=== PATIENT | male | born 1960 | race African-American/Black ===

== ENCOUNTER 2016-06-28 16:35 | Inpatient (IN) ==
[2016-06-28] MEDS ORDERED: *HR* LORazepam 2 MG/ML VIAL IVP ONE ×2 (16:37→18:48)
--- NOTE | 2016-06-28 17:09 | Emergency Department Note ---
Disposition Clinical Impression: Hypokalemia, Hypomagnesemia, Hyponatremia Alcohol withdrawal Qualifiers: Complication of substance-induced condition: uncomplicated Qualified Code(s): F10.230 - Alcohol dependence with withdrawal, uncomplicated Disposition: Admitted As Inpatient Condition: Good [facility]Primary Care Provider[facility] - Forms: ED Satisfaction Letter Recheck wound or abnormal lab - General Chief Complaint: ED Recheck/Abnormal Lab/Rx Stated Complaint: low potassium and sodium Time Seen by Provider: 06/28/16 16:35 Source: patient, EMS Mode of arrival: EMS Limitations: no limitations Nursing Notes Reviewed: Yes Vital Signs Reviewed: Yes - History of Present Illness HPI Narrative: 55-year-old male history of chronic alcohol abuse who presents to the ER with a chief complaint of abnormal labs. The patient arrives via EMS from the [facility]. Patient went there today to present for detoxification. Patient had labs drawn at that time which showed hypokalemia with a potassium of 1.8. Patient was transported here for evaluation. Patient does report that he did have some vomiting over the last few days. Patient denies a history of DTs. He reports that he has had seizures secondary to his sodium. He denies a history of seizure disorder. Patient brought here for evaluation. Ports that his last drink was yesterday evening. Reports that he usually drinks 4-6 beers a day. No other complaints. Pt Subjective Complaint: abnormal lab(s) Symptoms Since Prior Visit: no new symptoms Associated symptoms: none - Related Data Home Medications Medication Instructions Recorded Confirmed Buspirone HCl [Buspar] 10 mg PO TIDWM 06/28/16 06/28/16 Cholecalciferol (D-3) [Vitamin D] 2,000 unit PO DAILY 06/28/16 06/28/16 Folic Acid 1 mg PO DAILY 06/28/16 06/28/16 HydrOXYzine Pamoate [Vistaril] 50 mg PO TID 06/28/16 06/28/16 Lactose-Reduced Food [Ensure 237 ml PO BID 06/28/16 06/28/16 Liquid] Mag Hydrox/Al Hydrox/Simeth 30 ml PO Q6H PRN 06/28/16 06/28/16 [Antacid Suspension] Nicotine Patch [Nicoderm] 14 mg TD DAILY 06/28/16 06/28/16 Omeprazole [PriLOSEC] 20 mg PO BIDAC 06/28/16 06/28/16 Pantoprazole Sodium [Protonix] 40 mg PO DAILY 06/28/16 06/28/16 Potassium Chloride Elixir 20 meq PO BID 06/28/16 06/28/16 [Potassium Chloride] Prazosin [Minipress] 3 mg PO HS 06/28/16 06/28/16 Sildenafil Citrate [Viagra] 100 mg PO AD PRN 06/28/16 06/28/16 Thiamine (B-1) [Vitamin B-1] 100 mg PO DAILY 06/28/16 06/28/16 Trazodone HCl 150 mg PO HS 06/28/16 06/28/16 Triamterene/HCTZ 37.5/25mg 1 each PO DAILY 06/28/16 06/28/16 [Dyazide] Allergies Allergy/AdvReac Type Severity Reaction Status Date / Time No Known Allergies Allergy Verified 06/28/16 16:53 All systems ED: reviewed and negative except as stated. Constitutional: Denies: fever Cardiovascular: Denies: chest pain, palpitations Respiratory: Denies: cough, dyspnea Gastrointestinal: Reports: vomiting. Denies: abdominal pain, nausea, diarrhea Past Medical History - Past Medical History Attestation: Yes The following information was validated with the patient. Source: patient Medical history: Reports: seizures, other Surgical history: Reports: non-contributory Psychiatric history: Reports: anxiety, PTSD - Social History Smoking Status: Never smoker Smokeless Tobacco Status: Yes Alcohol use: Reports: heavy Drug use: Reports: marijuana Physical Exam - General Limitations: no limitations General appearance: alert, anxious - Head Head exam: atraumatic, normocephalic, normal inspection - Eye Eye exam: Present: normal appearance, EOMI - ENT ENT exam: normal exam - Neck Neck exam: Present: normal inspection - Chest Chest inspection: Present: normal inspection, symmetric chest wall rise - Respiratory Respiratory exam: Present: normal lung sounds bilaterally - Cardiovascular Cardiovascular exam: Present: regular rate, normal rhythm, normal heart sounds - Abdominal Exam Abdominal exam: Present: soft, Non-Tender. Absent: tenderness - Extremities Exam Extremities exam: Present: normal inspection, full ROM - Expanded Upper Extremity Exam Shoulder exam: Present: normal inspection, full ROM Arm exam: Present: normal inspection, full ROM Elbow exam: Present: normal inspection, full ROM Forearm/Wrist exam: Present: normal inspection, full ROM Hand exam: Present: normal inspection, full ROM - Expanded Lower Extremity Exam Hip/Pelvis exam: Present: normal inspection, full ROM Upper leg exam: Present: normal inspection, full ROM Knee exam: Present: normal inspection, full ROM Lower leg exam: Present: normal inspection, full ROM Ankle exam: Present: normal inspection, full ROM Foot/toe exam: Present: normal inspection, full ROM - Neurological Exam Neurological exam: Present: alert, oriented X3, CN II-XII intact. Absent: motor sensory deficit - Psychiatric Psychiatric exam: Present: normal affect, normal mood - Skin Skin exam: Present: warm, dry, intact, normal color Course Course Narrative: Patient seen and examined. Vital signs reviewed. He does appear anxious here. We will give him a dose of IV Ativan. We will recheck labs, EKG. Disposition pending. Vital Signs Temperature 98.9 F 06/28/16 16:37 Pulse Rate 90 06/28/16 16:37 Respiratory Rate 18 06/28/16 16:37 Blood Pressure 121/76 06/28/16 16:37 O2 Sat by Pulse Oximetry 100 06/28/16 16:37 Temperature 98.9 F 06/28/16 16:37 Pulse Rate 93 06/28/16 18:33 Respiratory Rate 18 06/28/16 18:33 Blood Pressure 118/88 06/28/16 18:33 O2 Sat by Pulse Oximetry 96 06/28/16 18:33 Oxygen Delivery Oxygen Delivery Room Air Recheck wound or abnormal lab - MDM Narrative Medical decision making narrative: 55-year-old male presents to the ER due to abnormal labs. History of alcohol abuse and went today for detox. He was found to be hypokalemic here at 2.0. He is also hypomagnesemic at 1.3. He is hyponatremic at 1:15. He reports a history of seizure in the past due to his sodium. Patient was given Ativan here for his tremor. We started him on normal saline maintenance fluids, potassium rider and oral potassium as well as IV magnesium. Patient admitted to the hospitalist service. - Lab Data Lab results reviewed: Yes I reviewed the patient's lab results. Result diagrams: 06/28/16 17:23 06/28/16 17:23 Lab Results 03/27/17 03/27/17 03/27/17 Range/Units 16:59 16:59 17:23 WBC 5.1 (4.3-11.1) K/mcL RBC 4.40 (4.19-5.50) M/mcL Hgb 9.9 L (12.9-16.9) g/dL Hct 29.1 L (37.5-50.1) % MCV 66.1 L (83.0-100.0) fL MCH 22.5 L (28.0-33.3) pg MCHC 34.0 (31.6-35.5) g/dL RDW 16.4 H (11.5-14.5) % Plt Count 254 (140-400) K/mcL MPV 8.8 L (9.4-12.4) fL Immature Gran % 0.6 (0-4) % Seg Neutrophils % 79.9 % Lymphocytes % 4.7 % Monocytes % 14.6 % Eosinophils % 0.0 % Basophils % 0.2 % Neutrophils # 4.1 (1.6-8.9) K/mcL Lymphocytes # 0.2 L (0.6-4.6) K/mcL Monocytes # 0.7 (0.0-1.3) K/mcL Eosinophils # 0.0 (0.0-0.6) K/mcL Basophils # 0.0 (0.0-0.2) K/mcL Platelet Estimate Normal (Normal) Hypochromasia Present A (Not Present) Anisocytosis 1+ A (Not Present) Microcytosis Present A (Not Present) Sodium (136-145) mEq/L Potassium (3.5-4.5) mEq/L Chloride (98-109) mEq/L Carbon Dioxide (19-29) mEq/L BUN (8-26) mg/dL Creatinine (0.72-1.25) mg/dL Est GFR ( Amer) (> 60) Est GFR (Non-Af Amer) (> 60) BUN/Creatinine Ratio (6-26) Glucose (70-99) mg/dL Calculated Osmolality (280-300) Calcium (8.6-10.8) mg/dL Magnesium (1.6-2.6) mg/dL Lipase (8-78) Units/L Urine Color Yellow (Yellow) Urine Clarity Clear (Clear) Urine pH 8.0 (5.0-8.0) pH Units Ur Specific Bowlus 1.006 L (1.010-1.025) Urine Protein Negative (Neg-Trace) mg/dL Urine Glucose (UA) Normal (Normal) mg/dL Urine Ketones Negative (Negative) mg/dL Urine Blood Negative (Negative) Urine Nitrite Negative (Negative) Urine Bilirubin Negative (Negative) Urine Urobilinogen Normal (Normal) mg/dL Ur Leukocyte Esterase Negative (Negative) Ur Culture Indicated? NO (NO) Urine Opiates Screen Negative (Nhpdcx=340) ng/mL Ur Barbiturates Screen Negative (Vlhvvi=998) ng/mL Ur Phencyclidine Scrn Negative (Cutoff=25) ng/mL Ur Amphetamines Screen Negative (Ooucoe=2807) ng/mL U Benzodiazepines Scrn Negative (Iovvlh=638) ng/mL Urine Cocaine Screen Negative (Cutoff= 300) ng/mL U Marijuana (THC) Screen Positive H (Cutoff = 50) ng/mL Ethyl Alcohol (0-10) mg/dL 06/28/16 06/28/16 Range/Units 17:23 17:23 WBC (4.3-11.1) K/mcL RBC (4.19-5.50) M/mcL Hgb (12.9-16.9) g/dL Hct (37.5-50.1) % MCV (83.0-100.0) fL MCH (28.0-33.3) pg MCHC (31.6-35.5) g/dL RDW (11.5-14.5) % Plt Count (140-400) K/mcL MPV (9.4-12.4) fL Immature Gran % (0-4) % Seg Neutrophils % % Lymphocytes % % Monocytes % % Eosinophils % % Basophils % % Neutrophils # (1.6-8.9) K/mcL Lymphocytes # (0.6-4.6) K/mcL Monocytes # (0.0-1.3) K/mcL Eosinophils # (0.0-0.6) K/mcL Basophils # (0.0-0.2) K/mcL Platelet Estimate (Normal) Hypochromasia (Not Present) Anisocytosis (Not Present) Microcytosis (Not Present) Sodium 115 L* (136-145) mEq/L Potassium 2.0 L* (3.5-4.5) mEq/L Chloride 66 L (98-109) mEq/L Carbon Dioxide 37 H (19-29) mEq/L BUN 5 L (8-26) mg/dL Creatinine 0.78 (0.72-1.25) mg/dL Est GFR ( Amer) > 60 (> 60) Est GFR (Non-Af Amer) > 60 (> 60) BUN/Creatinine Ratio 6 (6-26) Glucose 104 H (70-99) mg/dL Calculated Osmolality 238 L (280-300) Calcium 8.4 L (8.6-10.8) mg/dL Magnesium 1.3 L (1.6-2.6) mg/dL Lipase 13 (8-78) Units/L Urine Color (Yellow) Urine Clarity (Clear) Urine pH (5.0-8.0) pH Units Ur Specific Bowlus (1.010-1.025) Urine Protein (Neg-Trace) mg/dL Urine Glucose (UA) (Normal) mg/dL Urine Ketones (Negative) mg/dL Urine Blood (Negative) Urine Nitrite (Negative) Urine Bilirubin (Negative) Urine Urobilinogen (Normal) mg/dL Ur Leukocyte Esterase (Negative) Ur Culture Indicated? (NO) Urine Opiates Screen (Ljckzr=613) ng/mL Ur Barbiturates Screen (Pbkmvw=761) ng/mL Ur Phencyclidine Scrn (Cutoff=25) ng/mL Ur Amphetamines Screen (Gbfqxg=7132) ng/mL U Benzodiazepines Scrn (Okpzfc=100) ng/mL Urine Cocaine Screen (Cutoff= 300) ng/mL U Marijuana (THC) Screen (Cutoff = 50) ng/mL Ethyl Alcohol < 10 (0-10) mg/dL - EKG Data EKG attestation: Yes I reviewed and interpreted this EKG. EKG results narrative: EKG demonstrates normal sinus rhythm with a rate of 87 bpm. EKG is degraded by moderate motion artifact. SD interval 166 QRS duration 89 and QTC 303. No gross ST elevations or depressions. Repeat EKG demonstrates normal sinus rhythm with rate of 95 bpm. Normal axis. SD interval 151 QRS duration 91 QTc 438 T wave flattening in the inferior and lateral leads. No ST elevations or depressions. Critical Care Time Critical Care Time: Yes Total Critical Care Time: 35 Attestation: Critical care time 35 minutes managing patient's severe electrolyte abnormalities and alcohol withdrawal. Parul - Parul Situation: Demographics, MOA Background: Presenting Complaint, Relevant PMH, Meds, & Allergies Assessment: Vital Signs, Course and respsone to treatment, Exam Concerns, Patient/Family Expectation, Pertinant Lab Results, Outstanding Labs Recommendation: Barrier(s) to disposition, Recommendation based on pending studies, treatments, or consults SArron Report Given to: Lucia Teran Repor Time: 18:50 Attestation Statement - Attestation Attestation: Patient was seen with resident physician. I reviewed the history, physical, assessment and plan, and agree with the findings. I also personally evaluated this patient and had [id number] time with this patient. 55-year-old male presents to the emergency Department as a transfer from the [facility] with a chief complaint of alcohol withdrawal, as well as hyponatremia and hypokalemia. Patient has history of same. He has never had seizures from alcohol withdrawal and he has not had it this time. He does have tremors. He says that his sodium and potassium dropped with some frequency. Supposedly his potassium was 1.8. He was treated with some potassium prior to arrival he does have a port for this. On exam patient is a little bit tremulous but answers all questions appropriately. Neurologically patient is intact. ENT is normal. Heart and lungs are normal. Abdomen is soft and nontender. Extremities unremarkable. We will check lab tests to see the effectiveness of the previous treatments. EKG initially is a poor study will need to be repeated once his Ativan is not laced. Will start additional potassium treatments and have patient admitted to the hospital for further evaluation and treatment. I agree with the resident physician assessment and plan.
[2016-06-28 17:11] LABS: Bilirubin,Urine Negative (Negative); Blood,Urine Negative (Negative); Clarity,Urine Clear (Clear); Color,Urine Yellow (Yellow); Glucose,Urine (UA) Normal (Normal); Ketones,Urine Negative (Negative); Leukocyte Esterase,Urine Negative (Negative); Nitrite,Urine Negative (Negative); Protein,Urine Negative (Neg-Trace); Specific Gravity,Urine 1.006 (1.010-1.025); Urobilinogen,Urine Normal (Normal)
[2016-06-28 17:19] LABS: Amphetamine Screen,Urine Negative ng/mL (Cutoff=1000); Barbiturate Screen,Urine Negative ng/mL (Cutoff=200); Benzodiazepines Screen,Urine Negative ng/mL (Cutoff=200); Cannabinoid Screen,Urine Positive ng/mL (Cutoff = 50); Cocaine Screen,Urine Negative ng/mL (Cutoff= 300); Opiate Screen,Urine Negative ng/mL (Cutoff=300); Phencyclidine Screen,Urine Negative ng/mL (Cutoff=25)
[2016-06-28 17:36] LABS: Basophils % 0.2 %; Hematocrit 29.1 % (37.5-50.1); Hemoglobin 9.9 g/dL (12.9-16.9); Immature Granulocytes % 0.6 % (0-4); Lymphocytes # 0.2 K/mcL (0.6-4.6); Lymphocytes % 4.7 %; Mean Corpuscular Hemoglobin 22.5 pg (28.0-33.3); Mean Corpuscular Volume 66.1 fL (83.0-100.0); Mean Platelet Volume 8.8 fL (9.4-12.4); Monocytes % 14.6 %; Neutrophils # 4.1 K/mcL (1.6-8.9); Platelet Count 254 K/mcL (140-400); Red Cell Distribution Width 16.4 % (11.5-14.5); Segmented Neutrophils % 79.9 %
[2016-06-28 17:40] LABS: Monocytes # 0.7 K/mcL (0.0-1.3)
[2016-06-28 17:44] LABS: BUN/Creatinine Ratio 6 (6-26); Calcium 8.4 mg/dL (8.6-10.8); Carbon Dioxide 37 mEq/L (19-29); Chloride 66 mEq/L (98-109); Glucose 104 mg/dL (70-99); Lipase 13 Units/L (8-78); Osmolality,Calculated 238 (280-300); eGFR For African Americans > 60 (> 60); eGFR For Non-African Americans > 60 (> 60)
[2016-06-28 17:48] LABS: Blood Urea Nitrogen 5 mg/dL (8-26); Ethanol < 10 mg/dL (0-10)
[2016-06-28 17:50] LABS: Sodium 115 mEq/L (136-145)
[2016-06-28] MEDS ORDERED: Magnesium Sulfate 2 GM in D5% in Water 100 ML IVPB ONE (17:59)
[2016-06-28] MEDS ORDERED: 0.9 % Sodium Chloride 1,000 ML IVC SCH (18:00)
[2016-06-28 18:08] LABS: Anisocytosis 1+ (Not Present); Hypochromasia Present (Not Present); Microcytosis Present (Not Present); Platelet Estimate Normal (Normal)
[2016-06-28 21:41] LABS: BUN/Creatinine Ratio 6 (6-26); Calcium 8.6 mg/dL (8.6-10.8); Carbon Dioxide 36 mEq/L (19-29); Chloride 70 mEq/L (98-109); Glucose 107 mg/dL (70-99); Osmolality,Calculated 246 (280-300); eGFR For African Americans > 60 (> 60); eGFR For Non-African Americans > 60 (> 60)
[2016-06-28 21:45] LABS: Blood Urea Nitrogen 5 mg/dL (8-26)
[2016-06-28 21:49] LABS: Potassium 2.1 mEq/L (3.5-4.5); Sodium 119 mEq/L (136-145)
--- NOTE | 2016-06-29 00:09 | Internal Med History&Physical ---
Date of Encounter: 06/29/16 Time of Encounter: 00:06 Assessment and Plan (1) Hypokalemia Current visit: Yes Status: Acute Severe hypokalemia associated with hypomagnesemia. Magnesium was supplemented and is currently within normal limits. We will continue monitoring potassium and supplementing potassium accordingly. Telemetry monitoring. The patient is at high risk of developing arrhythmias due to severe electrolyte imbalances. (2) Hypomagnesemia Current visit: Yes Status: Acute Continue monitoring closely. (3) Hyponatremia Current visit: Yes Status: Acute Hyponatremia likely chronic in the setting of a patient with chronic alcohol abuse and the report of suzy. We will continue monitoring electrolytes closely. We will avoid a rapid correction of sodium levels. We will consult nephrology for assistance. (4) Alcohol dependence Current visit: Yes Status: Acute custodial services manager eval. DT prophylaxis. Qualifiers: Substance use status: unspecified alcohol-induced disorder Qualified Code(s ): F10.29 - Alcohol dependence with unspecified alcohol-induced disorder Internal Medicine - H&P: HPI Chief complaint: abnormal labs Admitted From: Emergency Dept Plans for Post Hospital Care: Home History of present illness: Mr. Abreu is a 55 year old male with history of chronic alcohol abuse who presents to the ER with a chief complaint of abnormal labs. The patient arrives via EMS from the [facility]. Patient went there today to be admitted for detoxification. Patient had labs drawn at that time which showed hypokalemia with a potassium of 1.8. Patient was transported here for evaluation. Patient does report that he did have some vomiting over the last few days. According to ED report, his last drink was yesterday evening. Reports that he usually drinks 4-6 beers a day. No other complaints. Inhalation in the ED revealed a sodium of 116, which later increased to 119 57. His profession Admission Was 2.0, Rechecked at 2.1. Magnesium Was 1.3, Later at 2.0. Patient was otherwise asymptomatic when I saw him, he denied chest pain , shortness of breath, chills, cough. He was admitted for further management and workup Past Med Surg Social Fam HX - Past Medical History Medical history: seizures, other Psychiatric history: anxiety, PTSD - Past Surgical History Surgical History: non-contributory - Social History Smoking Status: Never smoker Smokeless Tobacco Status: Yes Alcohol use: heavy Drug use: marijuana Internal Medicine - H&P: Meds Buspirone HCl [Buspar] 10 mg PO TIDWM 06/28/16 [History] Cholecalciferol (D-3) [Vitamin D] 2,000 unit PO DAILY 06/28/16 [History] Folic Acid 1 mg PO DAILY 06/28/16 [History] HydrOXYzine Pamoate [Vistaril] 50 mg PO TID 06/28/16 [History] Lactose-Reduced Food [Ensure Liquid] 237 ml PO BID 06/28/16 [History] Mag Hydrox/Al Hydrox/Simeth [Antacid Suspension] 30 ml PO Q6H PRN 06/28/16 [ History] Nicotine Patch [Nicoderm] 14 mg TD DAILY 06/28/16 [History] Omeprazole [PriLOSEC] 20 mg PO BIDAC 06/28/16 [History] Pantoprazole Sodium [Protonix] 40 mg PO DAILY 06/28/16 [History] Potassium Chloride Elixir [Potassium Chloride] 20 meq PO BID 06/28/16 [History] Prazosin [Minipress] 3 mg PO HS 06/28/16 [History] Sildenafil Citrate [Viagra] 100 mg PO AD PRN 06/28/16 [History] Thiamine (B-1) [Vitamin B-1] 100 mg PO DAILY 06/28/16 [History] Trazodone HCl 150 mg PO HS 06/28/16 [History] Triamterene/HCTZ 37.5/25mg [Dyazide] 1 each PO DAILY 06/28/16 [History] Allergies No Known Allergies Allergy (Verified 06/28/16 16:53) All Systems PM: A 10-system review of systems was performed and is negative for pertinent findings except as documented above in the HPI. - Constitutional Constitutional: as per HPI, no chills, no fever(s), no night sweats - EENT Eyes: as per HPI, no change in vision, no discharge, no pain, no photophobia Ears: as per HPI, no ear discharge, no ear pain, no tinnitus Nose, mouth and throat: as per HPI, no dysphagia, no nasal discharge, no neck pain, no sore throat - Breasts Breasts: as per HPI - Cardiovascular Cardiovascular ROS IM: as per HPI, no chest pain, no diaphoresis, no dyspnea, no lightheadedness, no palpitations, no syncope - Respiratory Respiratory: as per HPI, no cough, no dyspnea, no wheezing, no excessive phlegm production - Gastrointestinal Gastrointestinal: as per HPI, no abdominal pain, no diarrhea, no hematemesis, no hematochezia, no melena, no nausea, no vomiting - Genitourinary Genitourinary ROS male: as per HPI - Musculoskeletal Musculoskeletal ROS IM: as per HPI, no numbness, no tingling - Integumentary Integumentary IM: as per HPI, no rash, no unusual bruising - Neurological Neurological ROS: as per HPI, no confusion, no convulsions, no focal weakness, no numbness, no tingling, no tremor(s) - Psychiatric Psychiatric: as per HPI - Endocrine Endocrine IM: as per HPI - Hematologic/Lymphatic Hematologic/Lymphatic: as per HPI, no easy bruising - Allergic/Immunologic Allergic/Immunologic: as per HPI - Constitutional Vitals: Temp Pulse Resp BP Pulse Ox 98.9 F 82 14 91/69 96 06/28/16 16:37 06/28/16 20:27 06/28/16 21:20 06/28/16 21:20 06/28/16 20:27 General appearance: Present: cooperative, A&O X 3, no acute distress Exam: disheveled, multiple tattoos - Head Head exam: Present: atraumatic, normocephalic - Eye Eye exam: Present: PERRL, conjuntiva pink, sclera anicteric Pupils: Present: PERRL - Neck Neck exam general surgery: Present: supple, trachea midline. Absent: lymphadenopathy - Respiratory Respiratory exam: Present: CTAB. Absent: accessory muscle use, rales, rhonchi, wheezes - Cardiovascular Cardiovascular exam: Present: RRR, +S1, +S2. Absent: diastolic murmur, gallop, rubs, systolic murmur - GI/Abdominal GI/Abdominal exam: Present: normal bowel sounds, soft, no peritoneal signs. Absent: distended, tenderness - Extremities Exam Extremities exam: Present: warm, radial pulses palpable and symetrical. Absent : calf tenderness, cyanotic, pedal edema - Neurological Exam Neurological exam: Present: CN II-XII intact, oriented X3, no focal deficits. Absent: pronater drift, facial droop, speech deficit - Skin Skin exam: Present: dry, intact Internal Med - H&P Results - Labs CBC & Chem 7: 06/28/16 17:23 06/28/16 21:10 Labs: BMP 06/28/16 21:10 Sodium 119 L* Potassium 2.1 L* Chloride 70 L Carbon Dioxide 36 H BUN 5 L Creatinine 0.80 Glucose 107 H Calcium 8.6
[2016-06-29] MEDS ORDERED: Naloxone 0.4 MG/ML INJ IVP PRN (00:22)
[2016-06-29] MEDS ORDERED: Acetaminophen 325 MG TABLET PO PRN (00:22)
[2016-06-29] MEDS ORDERED: *HR* LORazepam 2 MG/ML VIAL IVP PRN ×2 (00:24)
[2016-06-29] MEDS: Magnesium Oxide 400 MG TABLET PO SCH ×3 (00:58→19:36)
[2016-06-29] MEDS: Ondansetron 4 MG/2 ML VIAL IVP PRN ×3 (00:58→19:38)
[2016-06-29 04:44] LABS: Basophils % 0.2 %; Eosinophils % 0.2 %; Hematocrit 30.4 % (37.5-50.1); Immature Granulocytes % 0.2 % (0-4); Lymphocytes # 0.4 K/mcL (0.6-4.6); Lymphocytes % 8.7 %; Mean Corpuscular HGB Conc 32.9 g/dL (31.6-35.5); Mean Corpuscular Hemoglobin 22.5 pg (28.0-33.3); Mean Corpuscular Volume 68.3 fL (83.0-100.0); Mean Platelet Volume 9.4 fL (9.4-12.4); Monocytes # 0.5 K/mcL (0.0-1.3); Monocytes % 12.8 %; Neutrophils # 3.3 K/mcL (1.6-8.9); Platelet Count 279 K/mcL (140-400); Red Blood Count 4.45 M/mcL (4.19-5.50); Red Cell Distribution Width 16.9 % (11.5-14.5); Segmented Neutrophils % 77.9 %
[2016-06-29 04:49] LABS: INR 1.2; Prothrombin Time 12.6 Seconds (9.4-12.1)
[2016-06-29 04:59] LABS: Alanine Aminotransferase 13 Units/L (0-55); Albumin 2.9 g/dL (3.5-5.0); Albumin/Globulin Ratio 0.9 (1.1-2.2); Alkaline Phosphatase 72 Units/L (38-126); Aspartate Amino Transferase 26 Units/L (5-34); BUN/Creatinine Ratio 7 (6-26); Bilirubin,Total 0.4 mg/dL (0.2-1.2); Calcium 8.4 mg/dL (8.6-10.8); Carbon Dioxide 38 mEq/L (19-29); Chloride 77 mEq/L (98-109); Globulin 3.3 g/dL (2.4-3.5); Glucose 89 mg/dL (70-99); Osmolality,Calculated 255 (280-300); Potassium 2.7 mEq/L (3.5-4.5); Sodium 124 mEq/L (136-145); Total Protein 6.2 g/dL (6.0-8.3); eGFR For African Americans > 60 (> 60); eGFR For Non-African Americans > 60 (> 60)
[2016-06-29 05:09] LABS: Blood Urea Nitrogen 5 mg/dL (8-26)
[2016-06-29 05:16] LABS: Anisocytosis 1+ (Not Present); Hypochromasia Present (Not Present); Platelet Estimate Normal (Normal); Reactive Lymphocytes Present (Not Present)
[2016-06-29] MEDS: *HR* Heparin 5,000 UNIT/ML VIAL SQ SCH ×2 (06:19→17:53)
[2016-06-29] MEDS: Vitamin B Complex/Vit C/Vit E 1 EACH TABLET PO SCH (07:48)
[2016-06-29] MEDS: Thiamine (B-1) 100 MG TABLET PO SCH (07:48)
[2016-06-29] MEDS: Folic Acid 1 MG TABLET PO SCH (07:48)
[2016-06-29] MEDS: Nicotine 21 MG PATCH.TD24 TD SCH (11:13)
[2016-06-29] MEDS ORDERED: Potassium Chloride Elixir 20 MEQ/15 ML UDC PO ONE ×2 (11:49→23:13)
[2016-06-29] MEDS: *HR* LORazepam 2 MG/ML VIAL IVP PRN ×2 (14:30→19:56)
--- NOTE | 2016-06-29 16:26 | Event Note ---
Date of Encounter: 06/29/16 Time of Encounter: 16:26 Patient admitted last night with abnormal electrolytes. He ahs hx of alcohol use admitted with hypokalemia, hyponatremia and hypomagnesemia. On replacement protocl. Repeat levels. Gives hx of chronic electrolyte abnormalities. Nephrology following. Will send labs to calculate TTKG. Could be component of Renal tubular acidosis. Will get aldosterone levls. Nephrology consulted.
--- NOTE | 2016-06-29 19:27 | Nephrology Consult Note ---
Date of Encounter: 06/29/16 Time of Encounter: 11:00 Assessment and Plan (1) Hyponatremia Current Visit: Yes Status: Chronic Longstanding chronic hyponatremia likely due to beer potomania aggravated by volume depletion from nausea and vomiting leading to acute hyponatremia Agrre with initial IVF for volume resuscitation with NS now discontinued as sodium improved to 124 Continue serial sodium checks Can resume salt tabs at 1g bid tomorrow Liberalize sodium in diet as well Await urine and serum osmolality still pending Will check urine sodium as well Will check uric acid and thyroid function as well as cortisol levels for hyponatremia workup (2) Hypokalemia Current Visit: Yes Status: Acute Hypokalemia likely due to vomiting in addition to longstanding poor po intake Agree with potassium supplements already done after magnesium repletion Might need another additional 100-120meq supplements tomorrow to reach normal limits (3) Alcohol dependence Current Visit: Yes Status: Chronic Agree with thiamine and folate as well as MVI supplements Agree with high protein shakes Qualifiers: Substance use status: unspecified alcohol-induced disorder Qualified Code(s ): F10.29 - Alcohol dependence with unspecified alcohol-induced disorder (4) Hypomagnesemia Current Visit: Yes Status: Resolved Repleted, continue mgoxide at current dose History of Present Illness - Reason for Consult Consult date: 06/29/16 hyponatremia, hypokalemia Requesting physician: Ran Bonds - History of Present Illness 55 y o male with PMH of EtOH abuse admitted after being sent from the [place] with abnormal labs with sodium of 115, potassium of 2.0, hypomagnesemia and also hypophosphatemia. Renal consulted to help with management of electrolyte abnormalities. Patient reports senior care history of hyponatremia for which he takes salt tabs bid. He also reports longstanding history of EtOH abuse drinking approx. 6(24oz) beer daily in the past 2 weeks. He also reports overall poor po intake and also takes multivitamin along with magenesium and [facility] He reports recent nausea and vomiting in the last few days but no diarrhea. He denies any diuretic use. Past Med Surg Social Fam HX - Past Medical History Medical history: seizures, other Psychiatric history: anxiety, PTSD - Past Surgical History Surgical History: non-contributory - Social History Smoking Status: Never smoker Smokeless Tobacco Status: Yes Alcohol use: heavy Drug use: marijuana Medications and Allergies Buspirone HCl [Buspar] 10 mg PO TIDWM 06/28/16 [History] Cholecalciferol (D-3) [Vitamin D] 2,000 unit PO DAILY 06/28/16 [History] Folic Acid 1 mg PO DAILY 06/28/16 [History] HydrOXYzine Pamoate [Vistaril] 50 mg PO TID 06/28/16 [History] Lactose-Reduced Food [Ensure Liquid] 237 ml PO BID 06/28/16 [History] Mag Hydrox/Al Hydrox/Simeth [Antacid Suspension] 30 ml PO Q6H PRN 06/28/16 [ History] Nicotine Patch [Nicoderm] 14 mg TD DAILY 06/28/16 [History] Omeprazole [PriLOSEC] 20 mg PO BIDAC 06/28/16 [History] Pantoprazole Sodium [Protonix] 40 mg PO DAILY 06/28/16 [History] Potassium Chloride Elixir [Potassium Chloride] 20 meq PO BID 06/28/16 [History] Prazosin [Minipress] 3 mg PO HS 06/28/16 [History] Sildenafil Citrate [Viagra] 100 mg PO AD PRN 06/28/16 [History] Thiamine (B-1) [Vitamin B-1] 100 mg PO DAILY 06/28/16 [History] Trazodone HCl 150 mg PO HS 06/28/16 [History] Triamterene/HCTZ 37.5/25mg [Dyazide] 1 each PO DAILY 06/28/16 [History] Allergies No Known Allergies Allergy (Verified 06/28/16 16:53) Review of Systems All Systems: reviewed and no additional remarkable complaints except as stated ( ten systems reviewed) Exam - Vital Signs Vital signs: Initial Vital Signs Temp Pulse Resp BP Pulse Ox 98.9 F 90 18 121/76 100 06/28/16 16:37 06/28/16 16:37 06/28/16 16:37 06/28/16 16:37 06/28/16 16:37 Vital Signs - Last 8 Hours Temp Pulse Resp BP Pulse Ox 06/29/16 19:06 98.8 F 106 18 105/82 99 06/29/16 16:27 98.2 F 98 18 96/74 97 06/29/16 14:48 97 Intake and Output 06/29/16 06/29/16 06/29/16 07:59 15:59 23:59 Intake Total 0 / 0 240 / 240 700 / 700 Output Total 1125 / 1125 250 / 250 Balance -1125 / -1125 -10 / -10 700 / 700 Intake: Oral 0 / 0 240 / 240 700 / 700 Output: Urine 1125 / 1125 250 / 250 Other: Meal Lunch Dinner Percent of Meal Consumed 5% 5% Weight 51.8 kg Blood Glucose* 96 111 104 Patient Weight 06/29/16 23:59 Weight 51.8 kg - General Appearance Exam: Thin, NAD EENT: ATNC, mucous membranes moist Neck: no JVD, supple Respiratory: clear Cardiology: no edema, normal S1, normal S2 Gastrointestinal: no tenderness, no guarding Integumentary: warm and dry Musculoskeletal: no deformities Psychiatric: mood/affect appropriate, cooperative Results - Lab Results 06/30/16 04:50 06/30/16 15:30 Most recent lab results Calcium 8.4 mg/dL (8.6-10.8) L 06/29/16 04:30 Phosphorus 2.2 mg/dL (2.3-4.7) L 06/28/16 21:10 Magnesium 2.0 mg/dL (1.6-2.6) 06/28/16 21:10 Consult Discharge Plan - Plan [facility]errals: [facility] [Primary Care Provider] - (PT IS GOING BACK TO REHAB, NO PCP APPOINTMENT NEEDED)
[2016-06-30 05:35] LABS: Basophils % 0.2 %; Eosinophils % 0.2 %; Hematocrit 29.6 % (37.5-50.1); Hemoglobin 9.3 g/dL (12.9-16.9); Immature Granulocytes % 0.7 % (0-4); Lymphocytes # 0.7 K/mcL (0.6-4.6); Lymphocytes % 12.2 %; Mean Corpuscular HGB Conc 31.4 g/dL (31.6-35.5); Mean Corpuscular Hemoglobin 21.7 pg (28.0-33.3); Mean Corpuscular Volume 69.2 fL (83.0-100.0); Mean Platelet Volume 8.8 fL (9.4-12.4); Monocytes # 0.7 K/mcL (0.0-1.3); Monocytes % 11.1 %; Neutrophils # 4.5 K/mcL (1.6-8.9); Platelet Count 298 K/mcL (140-400); Red Blood Count 4.28 M/mcL (4.19-5.50); Segmented Neutrophils % 75.6 %
[2016-06-30 05:49] LABS: BUN/Creatinine Ratio 6 (6-26); Calcium 8.6 mg/dL (8.6-10.8); Carbon Dioxide 37 mEq/L (19-29); Chloride 77 mEq/L (98-109); Glucose 100 mg/dL (70-99); Magnesium 1.6 mg/dL (1.6-2.6); Osmolality,Calculated 251 (280-300); Potassium 2.6 mEq/L (3.5-4.5); Sodium 122 mEq/L (136-145); eGFR For African Americans > 60 (> 60); eGFR For Non-African Americans > 60 (> 60)
[2016-06-30 05:57] LABS: Blood Urea Nitrogen 5 mg/dL (8-26)
[2016-06-30 06:11] LABS: Thyroid Stimulating Hormone 1.226 mcIU/mL (0.350-4.840)
[2016-06-30] MEDS: *HR* Heparin 5,000 UNIT/ML VIAL SQ SCH ×3 (06:17→17:26)
[2016-06-30 06:22] LABS: Anisocytosis 1+ (Not Present); Microcytosis Present (Not Present); Platelet Estimate Normal (Normal)
[2016-06-30 06:23] LABS: Reactive Lymphocytes Present (Not Present)
[2016-06-30 06:24] LABS: Hypochromasia Present (Not Present)
[2016-06-30] MEDS: Magnesium Oxide 400 MG TABLET PO SCH ×2 (07:34→19:49)
[2016-06-30] MEDS: Folic Acid 1 MG TABLET PO SCH (07:34)
[2016-06-30] MEDS: Thiamine (B-1) 100 MG TABLET PO SCH (07:34)
[2016-06-30] MEDS: Vitamin B Complex/Vit C/Vit E 1 EACH TABLET PO SCH (07:34)
[2016-06-30] MEDS: Nicotine 21 MG PATCH.TD24 TD SCH (07:35)
--- NOTE | 2016-06-30 08:12 | Electrocardiograph Report ---
[place] [id number] Test Date: 2016-06-28 Pat Name: Willi Abreu Department: 103 Room: 2N08 Gender: M [employer] Analyst: : 1960 Requested By: Ortiz Coon Order Number: [id number] Reading MD: Tariq Brush MD Measurements Intervals [place] Rate: 95 P: 70 GA: 151 QRS: 52 QRSD: 91 T: 30 QT: 386 QTc: 438 Interpretive Statements SINUS RHYTHM NONSPECIFIC T-WAVE ABNORMALITY BASELINE ARTIFACT Electronically Signed On 06-30-2016 8:10:59 EDT by Tariq Brush MD
[2016-06-30] MEDS ORDERED: Potassium Chloride Elixir 20 MEQ/15 ML UDC PO ONE (10:42)
--- NOTE | 2016-06-30 11:42 | Nephrology Progress Note ---
<Daniela Willis - Last Filed: 06/30/16 11:38> Date of Encounter: 06/30/16 Time of Encounter: 11:38 - Assessment and Plan (1) Hyponatremia Current Visit: Yes Status: Chronic acute on chronic -chronic due to beer potomania -acute due to dehydration from vomiting --resolved resume salt tabs 1 g bid repeat BMP at 3pm urine studies pending (2) Hypokalemia Current Visit: Yes Status: Acute 2.6 this morning replete 60 meq total this morning (20 meq bid + 40 meq once) repeat BMP at 3pm (3) Alcohol dependence Current Visit: Yes Status: Chronic Agree with thiamine and folate as well as MVI supplements Agree with high protein shakes Qualifiers: Substance use status: unspecified alcohol-induced disorder Qualified Code(s ): F10.29 - Alcohol dependence with unspecified alcohol-induced disorder (4) Hypomagnesemia Current Visit: Yes Status: Resolved Repleted, continue magoxide at current dose Subjective Principal diagnosis: hyponatremia, hypokalemia Interval history: Patient seen and examined. No complaints, feeling better. Objective - Vital Signs Vital signs: Vital Signs Temp Pulse Resp BP Pulse Ox 06/30/16 07:40 78 06/30/16 07:15 98.8 F 88 18 87/69 100 06/30/16 04:33 95 06/30/16 04:30 99.3 F 90 18 99/66 98 06/30/16 00:23 92 06/30/16 00:18 99.2 F 97 18 103/81 100 06/29/16 21:12 96 06/29/16 19:06 98.8 F 106 18 105/82 99 06/29/16 16:27 98.2 F 98 18 96/74 97 06/29/16 14:48 97 Intake and Output 06/29/16 06/30/16 06/30/16 23:59 07:59 15:59 Intake Total 700 / 700 120 / 120 600 / 600 Output Total 400 / 400 Balance 700 / 700 -280 / -280 600 / 600 Intake: Oral 700 / 700 120 / 120 600 / 600 Output: Urine 400 / 400 Other: Meal Dinner Breakfast Percent of Meal Consumed 5% 90% Stool Size Small Stool Consistency formed Stool Color Brown # Bowel Movements 1 Weight 52.8 kg Blood Glucose* 177 92 Patient Weight 06/30/16 23:59 Weight 52.8 kg - General Appearance General appearance: Present: well-developed, well-nourished, appears started age EENT: Present: mucous membranes moist Neck: Present: supple Respiratory: Present: clear Cardiology: Present: no murmurs, regular rate, regular rhythm, normal S1, normal S2 Integumentary: Present: no rash, warm and dry Neurologic: Present: no focal deficit, alert and oriented x3 Musculoskeletal: Present: no deformities, no erythema, no cyanosis, no clubbing Psychiatric: Present: mood/affect appropriate, cooperative - Lab 06/30/16 04:50 06/30/16 04:50 Most recent lab results Calcium 8.6 mg/dL (8.6-10.8) 06/30/16 04:50 Phosphorus 2.2 mg/dL (2.3-4.7) L 06/28/16 21:10 Magnesium 1.6 mg/dL (1.6-2.6) 06/30/16 04:50 Consult Discharge Plan - Plan [facility]errals: [facility] [Primary Care Provider] - (PT IS GOING BACK TO REHAB, NO PCP APPOINTMENT NEEDED) <Arden Walls - Last Filed: 07/01/16 15:31> Date of Encounter: 06/29/16 - Assessment and Plan (1) Hyponatremia Current Visit: Yes Status: Chronic (2) Hypokalemia Current Visit: Yes Status: Acute (3) Alcohol dependence Current Visit: Yes Status: Chronic Qualifiers: Substance use status: unspecified alcohol-induced disorder Qualified Code(s ): F10.29 - Alcohol dependence with unspecified alcohol-induced disorder (4) Hypomagnesemia Current Visit: Yes Status: Resolved Objective - Vital Signs Vital signs: Vital Signs Temp Pulse Resp BP Pulse Ox 07/01/16 11:55 98.5 F 89 18 79/66 98 07/01/16 07:54 99.0 F 86 18 85/52 98 07/01/16 04:05 99.0 F 82 19 83/61 97 06/30/16 23:43 99.9 F H 99 18 80/49 97 06/30/16 19:55 100.2 F H 100 16 97/77 100 06/30/16 17:22 88 99/71 06/30/16 16:08 97.7 F 86 18 83/59 94 L Intake and Output 06/30/16 07/01/16 07/01/16 23:59 07:59 15:59 Intake Total 824 / 824 Output Total 300 / 300 Balance -300 / -300 824 / 824 Intake: IV Fluids 104 / 104 Magnesium Sulfate 2 GM In 104 / 104 Dextrose 5% 100 ML @ 100 mls/hr IVPB ONCE ONE Rx# :[id number] Oral 720 / 720 Output: Urine 300 / 300 Other: Meal Lunch Percent of Meal Consumed 50% Weight 51.7 kg Blood Glucose* 119 98 130 Patient Weight 07/01/16 23:59 Weight 51.7 kg - Lab 06/30/16 04:50 07/01/16 03:28 Most recent lab results Calcium 8.7 mg/dL (8.6-10.8) 07/01/16 03:28 Phosphorus 2.2 mg/dL (2.3-4.7) L 06/28/16 21:10 Magnesium 1.4 mg/dL (1.6-2.6) L 07/01/16 03:28 Urine Creatinine 112 mg/dL 07/01/16 03:45 Urine Sodium 71.0 mEq/L 07/01/16 03:45 - Attending Attestation I examined this patient and my medical decision-making was reviewed with the DIRECTOR OF NUCLEAR MEDICINE/PA/Advanced Practice Nurse/Resident Physician. I agree with the documented findings, disposition and treatment plan as described except to the extent set forth below. Pt seen and examined feeling better as sodium and potassium improving. Will resume salt tabs at bid, continue liberaluize sodium in diet. Continue aggressive potassium repletion as well
--- NOTE | 2016-06-30 11:56 | Internal Med Progress Note ---
Date of Encounter: 06/30/16 Time of Encounter: 11:53 - Assessment and plan (1) Hypokalemia Current Visit: Yes Status: Acute (2) Alcohol withdrawal Current Visit: Yes Status: Acute Qualifiers: Complication of substance-induced condition: with unspecified complication Qualified Code(s): F10.239 - Alcohol dependence with withdrawal, unspecified (3) Hypomagnesemia Current Visit: Yes Status: Resolved (4) Hyponatremia Current Visit: Yes Status: Chronic (5) Alcohol dependence Current Visit: Yes Status: Chronic Qualifiers: Substance use status: unspecified alcohol-induced disorder Qualified Code(s ): F10.29 - Alcohol dependence with unspecified alcohol-induced disorder (6) DVT prophylaxis Current Visit: Yes Status: Acute Assessment and plan: Patient is a 55y/o male with PMH of chronic alcohol abuse who was admitted for management of abnormal labs. # Electrolyte imbalances: Hypokalemia, Hyponatremia, Hypomagnesemia Likely secondary to chronic alcohol abuse supplement K and Mg. 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 Resting in bed and reports of feeling tired. states his last drink was on Tuesday when he had a one can of 24oz beer however states he does have a history of drinking 5-6 24oz cans of beer daily, but currently is going through the detox program at the [facility]. Denies any headache, dizziness, palpitations, chest pain, sob, tremors, n/v, fevers, or chills at this time. - Constitutional Vitals: Temp Pulse Resp BP Pulse Ox 98.8 F 78 18 87/69 100 06/30/16 07:15 06/30/16 07:40 06/30/16 07:15 06/30/16 07:15 06/30/16 07:15 General appearance: Present: cooperative, disheveled, A&O X 3, no acute distress - Head Head exam: Present: atraumatic, normocephalic - Eye Eye exam: Present: conjuntiva pink - Respiratory Respiratory exam: Present: CTAB. Absent: accessory muscle use, rales, rhonchi, wheezes - Cardiovascular Cardiovascular exam: Present: RRR, +S1, +S2. Absent: diastolic murmur, gallop, rubs, systolic murmur - GI/Abdominal GI/Abdominal exam: Present: normal bowel sounds, soft, no peritoneal signs. Absent: distended, tenderness - Extremities Exam Extremities exam: Present: warm, radial pulses palpable and symetrical. Absent : calf tenderness, cyanotic, pedal edema - Neurological Exam Neurological exam: Present: alert, oriented X3, no focal deficits. Absent: pronater drift, facial droop, speech deficit - Psychiatric Psychiatric exam: Present: normal affect, normal mood Internal Medicine: Result - Labs CBC & Chem 7: 06/30/16 04:50 06/30/16 04:50 Labs: Short CBC 06/30/16 Range/Units 04:50 WBC 5.9 (4.3-11.1) K/mcL Hgb 9.3 L (12.9-16.9) g/dL Hct 29.6 L (37.5-50.1) % Plt Count 298 (140-400) K/mcL Neutrophils # 4.5 (1.6-8.9) K/mcL BMP 06/30/16 04:50 Sodium 122 L Potassium 2.6 L Chloride 77 L Carbon Dioxide 37 H BUN 5 L Creatinine 0.80 Glucose 100 H Calcium 8.6 - ABG Interpretation ABG results: PT/INR, D-dimer PT 12.6 Seconds (9.4-12.1) H 06/29/16 04:30 Consult Discharge Plan - Plan [facility]errals: [facility] [Primary Care Provider] - (PT IS GOING BACK TO REHAB, NO PCP APPOINTMENT NEEDED)
[2016-06-30 15:54] LABS: BUN/Creatinine Ratio 9 (6-26); Blood Urea Nitrogen 7 mg/dL (8-26); Calcium 8.4 mg/dL (8.6-10.8); Carbon Dioxide 33 mEq/L (19-29); Chloride 77 mEq/L (98-109); Glucose 127 mg/dL (70-99); Osmolality,Calculated 254 (280-300); Potassium 2.9 mEq/L (3.5-4.5); Sodium 122 mEq/L (136-145); eGFR For African Americans > 60 (> 60); eGFR For Non-African Americans > 60 (> 60)
[2016-06-30] MEDS: Potassium Chloride Elixir 20 MEQ/15 ML UDC PO SCH (17:21)
--- NOTE | 2016-06-30 19:07 | Electrocardiograph Report ---
[place] Test Date: 2016-06-28 Pat Name: Willi Abreu Department: 103 Room: 2N08 Gender: M Electric [employer] Tester: : 1960 Requested By: Ortiz Coon Order Number: [id number] Reading MD: Hedy Johnson DO Measurements Intervals [place] Rate: 87 P: 55 [place]: 166 QRS: -13 QRSD: 89 T: 35 QT: 258 QTc: 303 Interpretive Statements SINUS RHYTHM NONSPECIFIC ST \T\ T-WAVE ABNORMALITY Electronically Signed On 06-30-2016 19:05:32 EDT by Hedy Johnson DO
[2016-06-30] MEDS: traZODone 50 MG TABLET PO SCH (19:49)
[2016-07-01 03:49] LABS: Alanine Aminotransferase 8 Units/L (0-55); Albumin 2.7 g/dL (3.5-5.0); Albumin/Globulin Ratio 0.9 (1.1-2.2); Alkaline Phosphatase 64 Units/L (38-126); Aspartate Amino Transferase 18 Units/L (5-34); BUN/Creatinine Ratio 6 (6-26); Bilirubin,Total 0.3 mg/dL (0.2-1.2); Calcium 8.7 mg/dL (8.6-10.8); Carbon Dioxide 34 mEq/L (19-29); Chloride 79 mEq/L (98-109); Globulin 3.1 g/dL (2.4-3.5); Glucose 92 mg/dL (70-99); Magnesium 1.4 mg/dL (1.6-2.6); Osmolality,Calculated 249 (280-300); Potassium 2.9 mEq/L (3.5-4.5); Sodium 121 mEq/L (136-145); Total Protein 5.8 g/dL (6.0-8.3); eGFR For African Americans > 60 (> 60); eGFR For Non-African Americans > 60 (> 60)
[2016-07-01 03:50] LABS: Blood Urea Nitrogen 5 mg/dL (8-26)
[2016-07-01] MEDS: *HR* Heparin 5,000 UNIT/ML VIAL SQ SCH ×2 (05:37→17:40)
[2016-07-01] MEDS ORDERED: Potassium Chloride Elixir 20 MEQ/15 ML UDC PO ONE ×2 (07:39→12:00)
[2016-07-01] MEDS ORDERED: Magnesium Sulfate 2 GM in D5% in Water 100 ML IVPB ONE (07:39)
[2016-07-01] MEDS ORDERED: 0.9 % Sodium Chloride 250 ML IVC PRN (07:40)
[2016-07-01] MEDS: Vitamin B Complex/Vit C/Vit E 1 EACH TABLET PO SCH (09:05)
[2016-07-01] MEDS: Thiamine (B-1) 100 MG TABLET PO SCH (09:05)
[2016-07-01] MEDS: Potassium Chloride Elixir 20 MEQ/15 ML UDC PO SCH ×2 (09:05→17:37)
[2016-07-01] MEDS: Folic Acid 1 MG TABLET PO SCH (09:05)
[2016-07-01] MEDS: Magnesium Oxide 400 MG TABLET PO SCH ×2 (09:05→19:36)
[2016-07-01] MEDS: Nicotine 21 MG PATCH.TD24 TD SCH (09:06)
--- NOTE | 2016-07-01 12:59 | Internal Med Progress Note ---
Date of Encounter: 06/29/16 Time of Encounter: 12:00 - Assessment and plan (1) Hypokalemia Current Visit: Yes Status: Acute (2) Alcohol withdrawal Current Visit: Yes Status: Acute Qualifiers: Complication of substance-induced condition: with unspecified complication Qualified Code(s): F10.239 - Alcohol dependence with withdrawal, unspecified (3) Hypomagnesemia Current Visit: Yes Status: Resolved (4) Hyponatremia Current Visit: Yes Status: Chronic (5) Alcohol dependence Current Visit: Yes Status: Chronic Qualifiers: Substance use status: unspecified alcohol-induced disorder Qualified Code(s ): F10.29 - Alcohol dependence with unspecified alcohol-induced disorder (6) DVT prophylaxis Current Visit: Yes Status: Acute Assessment and plan: Patient is a 55y/o male with PMH of chronic alcohol abuse who was admitted for management of abnormal labs. # Electrolyte imbalances: Hypokalemia, Hyponatremia, Hypomagnesemia Likely secondary to chronic alcohol abuse supplement K and Mg. Continue to monitor Nephrology consultation appreciated continue salt tabs hyponatremia likely secondary to beer potomania, fluid restriction f/u repeat labs # Alcohol withdrawal: Given history, will closely monitor for alcohol withdrawals Folic acid and Thiamine CIWA monitoring lunchroom worker consultation appreciated # Hypotension BP low but acceptable Will continue to closely monitor Pt remains asymptomatic # DVT ppx: Heparin SQ # Disposition: Discharge pending correction of lytes. Will be discharged to [place] detox facility. - Subjective Interval history: Pt seen and examined at bedside. Resting in bed and reports of feeling better compared to previous day. States he has numerous hospitalizations due to his electrolyte imbalances. Noted to have persistent hypotension however asymptomatic at this time. Denies any headache, lightheadedness, dizziness at this time. - Constitutional Vitals: Temp Pulse Resp BP Pulse Ox 98.5 F 89 18 79/66 98 07/01/16 11:55 07/01/16 11:55 07/01/16 11:55 07/01/16 11:55 07/01/16 11:55 General appearance: Present: cooperative, disheveled, A&O X 3, no acute distress - Head Head exam: Present: atraumatic, normocephalic - Eye Eye exam: Present: normal appearance, conjuntiva pink, sclera anicteric - Respiratory Respiratory exam: Present: CTAB. Absent: accessory muscle use, rales, rhonchi, wheezes - Cardiovascular Cardiovascular exam: Present: RRR, +S1, +S2. Absent: diastolic murmur, gallop, rubs, systolic murmur - GI/Abdominal GI/Abdominal exam: Present: normal bowel sounds, soft, no peritoneal signs. Absent: distended, tenderness - Extremities Exam Extremities exam: Present: warm, radial pulses palpable and symetrical. Absent : calf tenderness, cyanotic, pedal edema - Neurological Exam Neurological exam: Present: alert, oriented X3 - Psychiatric Psychiatric exam: Present: normal affect, normal mood Internal Medicine: Result - Labs CBC & Chem 7: 06/30/16 04:50 07/01/16 03:28 Labs: BMP 06/30/16 07/01/16 15:30 03:28 Sodium 122 L 121 L Potassium 2.9 L 2.9 L Chloride 77 L 79 L Carbon Dioxide 33 H 34 H BUN 7 L 5 L Creatinine 0.78 0.79 Glucose 127 H 92 Calcium 8.4 L 8.7 Liver Function 07/01/16 Range/Units 03:28 Total Bilirubin 0.3 (0.2-1.2) mg/dL AST 18 (5-34) Units/L ALT 8 (0-55) Units/L Alkaline Phosphatase 64 (38-126) Units/L Albumin 2.7 L (3.5-5.0) g/dL - ABG Interpretation ABG results: PT/INR, D-dimer PT 12.6 Seconds (9.4-12.1) H 06/29/16 04:30 Consult Discharge Plan - Plan [facility]errals: [facility] [Primary Care Provider] - (PT IS GOING BACK TO REHAB, NO PCP APPOINTMENT NEEDED)
[2016-07-01] MEDS: Ibuprofen 600 MG TABLET PO PRN (14:20)
--- NOTE | 2016-07-01 15:34 | Nephrology Progress Note ---
Date of Encounter: 07/01/16 Time of Encounter: 11:00 - Assessment and Plan (1) Hyponatremia Current Visit: Yes Status: Chronic Sodium still low at 121, will increase salt tabs to tid Continue salt packets with meals as well Limit fluid intake to 40-64oz a day Will check urine osm and sodium if no further improvement (2) Hypokalemia Current Visit: Yes Status: Acute Potassium remains low as well. Agree with supplements already given Will increase standing potassium dose from 20meq bid to 40meq bid if not already done (3) Alcohol dependence Current Visit: Yes Status: Chronic Qualifiers: Substance use status: unspecified alcohol-induced disorder Qualified Code(s ): F10.29 - Alcohol dependence with unspecified alcohol-induced disorder (4) Hypomagnesemia Current Visit: Yes Status: Resolved Subjective Principal diagnosis: hyponatremia, hypokalemia Interval history: Pt seen and examined with no new complaints. He reports getting salt packets for meals and has been drinking ensure with meals as well. He reports only drinking a little of fluid yesterday today. Objective - Vital Signs Vital signs: Vital Signs Temp Pulse Resp BP Pulse Ox 07/01/16 11:55 98.5 F 89 18 79/66 98 07/01/16 07:54 99.0 F 86 18 85/52 98 07/01/16 04:05 99.0 F 82 19 83/61 97 06/30/16 23:43 99.9 F H 99 18 80/49 97 06/30/16 19:55 100.2 F H 100 16 97/77 100 06/30/16 17:22 88 99/71 06/30/16 16:08 97.7 F 86 18 83/59 94 L Intake and Output 06/30/16 07/01/16 07/01/16 23:59 07:59 15:59 Intake Total 824 / 824 Output Total 300 / 300 Balance -300 / -300 824 / 824 Intake: IV Fluids 104 / 104 Magnesium Sulfate 2 GM In 104 / 104 Dextrose 5% 100 ML @ 100 mls/hr IVPB ONCE ONE Rx# :[id number] Oral 720 / 720 Output: Urine 300 / 300 Other: Meal Lunch Percent of Meal Consumed 50% Weight 51.7 kg Blood Glucose* 119 98 130 Patient Weight 07/01/16 23:59 Weight 51.7 kg - General Appearance General appearance: Present: well-developed Exam: Thin, NAD EENT: Present: ATNC, mucous membranes moist Neck: Present: no JVD, supple Respiratory: Present: clear Cardiology: Present: no edema, normal S1, normal S2 Gastrointestinal: Present: no tenderness, no guarding Integumentary: Present: warm and dry Neurologic: Present: no focal deficit Musculoskeletal: Present: no deformities Psychiatric: Present: mood/affect appropriate, cooperative - Lab 06/30/16 04:50 07/01/16 03:28 Most recent lab results Calcium 8.7 mg/dL (8.6-10.8) 07/01/16 03:28 Phosphorus 2.2 mg/dL (2.3-4.7) L 06/28/16 21:10 Magnesium 1.4 mg/dL (1.6-2.6) L 07/01/16 03:28 Urine Creatinine 112 mg/dL 07/01/16 03:45 Urine Sodium 71.0 mEq/L 07/01/16 03:45 Consult Discharge Plan - Plan [facility]errals: [facility] [Primary Care Provider] - (PT IS GOING BACK TO REHAB, NO PCP APPOINTMENT NEEDED)
[2016-07-01 16:27] LABS: Basophils % 0.2 %; Eosinophils % 0.2 %; Hematocrit 30.4 % (37.5-50.1); Hemoglobin 9.7 g/dL (12.9-16.9); Immature Granulocytes % 0.2 % (0-4); Lymphocytes # 0.9 K/mcL (0.6-4.6); Lymphocytes % 19.8 %; Mean Corpuscular HGB Conc 31.9 g/dL (31.6-35.5); Mean Corpuscular Hemoglobin 22.1 pg (28.0-33.3); Mean Corpuscular Volume 69.2 fL (83.0-100.0); Mean Platelet Volume 8.5 fL (9.4-12.4); Monocytes # 0.5 K/mcL (0.0-1.3); Monocytes % 11.7 %; Neutrophils # 2.9 K/mcL (1.6-8.9); Platelet Count 278 K/mcL (140-400); Red Blood Count 4.39 M/mcL (4.19-5.50); Red Cell Distribution Width 17.2 % (11.5-14.5); Segmented Neutrophils % 67.9 %
[2016-07-01 16:40] LABS: BUN/Creatinine Ratio 13 (6-26); Blood Urea Nitrogen 11 mg/dL (8-26); Calcium 8.8 mg/dL (8.6-10.8); Carbon Dioxide 34 mEq/L (19-29); Chloride 78 mEq/L (98-109); Glucose 93 mg/dL (70-99); Magnesium 1.8 mg/dL (1.6-2.6); Osmolality,Calculated 255 (280-300); Potassium 3.2 mEq/L (3.5-4.5); Sodium 123 mEq/L (136-145); eGFR For African Americans > 60 (> 60); eGFR For Non-African Americans > 60 (> 60)
[2016-07-01 17:03] LABS: Hypochromasia Present (Not Present)
[2016-07-01 17:04] LABS: Microcytosis Present (Not Present)
[2016-07-01 17:05] LABS: Acanthocytes 1+ (Not Present)
[2016-07-01] MEDS: Magnesium Sulfate 2 GM in D5% in Water 100 ML IVPB PRN (17:39)
[2016-07-01] MEDS: traZODone 50 MG TABLET PO SCH (19:37)
[2016-07-02] MEDS: Ibuprofen 600 MG TABLET PO PRN (00:02)
[2016-07-02 00:40] LABS: BUN/Creatinine Ratio 10 (6-26); Blood Urea Nitrogen 8 mg/dL (8-26); Calcium 8.1 mg/dL (8.6-10.8); Carbon Dioxide 37 mEq/L (19-29); Chloride 78 mEq/L (98-109); Glucose 85 mg/dL (70-99); Magnesium 2.1 mg/dL (1.6-2.6); Osmolality,Calculated 252 (280-300); Potassium 2.7 mEq/L (3.5-4.5); Sodium 122 mEq/L (136-145); eGFR For African Americans > 60 (> 60); eGFR For Non-African Americans > 60 (> 60)
[2016-07-02 04:14] LABS: Basophils % 0.3 %; Eosinophils % 0.6 %; Hematocrit 25.1 % (37.5-50.1); Hemoglobin 8.2 g/dL (12.9-16.9); Immature Granulocytes % 0.3 % (0-4); Lymphocytes # 0.8 K/mcL (0.6-4.6); Lymphocytes % 24.8 %; Mean Corpuscular HGB Conc 32.7 g/dL (31.6-35.5); Mean Corpuscular Hemoglobin 22.4 pg (28.0-33.3); Mean Corpuscular Volume 68.6 fL (83.0-100.0); Mean Platelet Volume 8.8 fL (9.4-12.4); Monocytes # 0.4 K/mcL (0.0-1.3); Monocytes % 13.8 %; Neutrophils # 1.9 K/mcL (1.6-8.9); Platelet Count 234 K/mcL (140-400); Red Blood Count 3.66 M/mcL (4.19-5.50); Red Cell Distribution Width 17.1 % (11.5-14.5); Segmented Neutrophils % 60.2 %
[2016-07-02 04:54] LABS: Anisocytosis 1+ (Not Present); Microcytosis Present (Not Present); Platelet Estimate Normal (Normal); Reactive Lymphocytes Present (Not Present)
[2016-07-02] MEDS: *HR* Heparin 5,000 UNIT/ML VIAL SQ SCH (05:00)
[2016-07-02 05:03] LABS: BUN/Creatinine Ratio 9 (6-26); Blood Urea Nitrogen 7 mg/dL (8-26); Carbon Dioxide 35 mEq/L (19-29); Chloride 78 mEq/L (98-109); Glucose 82 mg/dL (70-99); Magnesium 1.8 mg/dL (1.6-2.6); Osmolality,Calculated 245 (280-300); Phosphorous 2.3 mg/dL (2.3-4.7); eGFR For African Americans > 60 (> 60); eGFR For Non-African Americans > 60 (> 60)
[2016-07-02 05:08] LABS: Sodium 119 mEq/L (136-145)
[2016-07-02] MEDS: Magnesium Sulfate 2 GM in D5% in Water 100 ML IVPB PRN (06:29)
[2016-07-02] MEDS: Thiamine (B-1) 100 MG TABLET PO SCH (08:08)
[2016-07-02] MEDS: Vitamin B Complex/Vit C/Vit E 1 EACH TABLET PO SCH (08:08)
[2016-07-02] MEDS: Magnesium Oxide 400 MG TABLET PO SCH (08:08)
[2016-07-02] MEDS: Folic Acid 1 MG TABLET PO SCH (08:08)
[2016-07-02] MEDS: Potassium Chloride Elixir 20 MEQ/15 ML UDC PO SCH (08:08)
[2016-07-02] MEDS: Nicotine 21 MG PATCH.TD24 TD SCH (08:09)
[2016-07-02 10:14] LABS: Magnesium 2.5 mg/dL (1.6-2.6); Potassium 3.1 mEq/L (3.5-4.5)
[2016-07-02] MEDS: Potassium Chloride 40 MEQ/200 ML BAG IVPB PRN ×2 (11:31→12:50)
[2016-07-02] MEDS ORDERED: 0.9 % Sodium Chloride 1,000 ML IVC SCH (11:45)
--- NOTE | 2016-07-02 12:15 | Transfer Summary ---
Date of Encounter: 07/01/16 Time of Encounter: 12:12 Transfer Discharge Sum: Diag - Discharge Diagnosis (1) Hypokalemia Status: Acute (2) Alcohol withdrawal Status: Acute (3) Hypomagnesemia Status: Resolved (4) Hyponatremia Status: Chronic (5) Alcohol dependence Status: Chronic (6) DVT prophylaxis Status: Acute Transfer Discharge Sum: Med - Medications Active and Home Medications: Home Medications Buspirone HCl [Buspar] 10 mg PO TIDWM 06/28/16 [History Confirmed 06/28/16] Cholecalciferol (D-3) [Vitamin D] 2,000 unit PO DAILY 06/28/16 [History Confirmed 06/28/16] Folic Acid 1 mg PO DAILY 06/28/16 [History Confirmed 06/28/16] HydrOXYzine Pamoate [Vistaril] 50 mg PO TID 06/28/16 [History Confirmed 06/28/16 ] Lactose-Reduced Food [Ensure Liquid] 237 ml PO BID 06/28/16 [History Confirmed 06/28/16] Mag Hydrox/Al Hydrox/Simeth [Antacid Suspension] 30 ml PO Q6H PRN 06/28/16 [ History Confirmed 06/28/16] Nicotine Patch [Nicoderm] 14 mg TD DAILY 06/28/16 [History Confirmed 06/28/16] Omeprazole [PriLOSEC] 20 mg PO BIDAC 06/28/16 [History Confirmed 06/28/16] Pantoprazole Sodium [Protonix] 40 mg PO DAILY 06/28/16 [History Confirmed ] Potassium Chloride Elixir [Potassium Chloride] 20 meq PO BID 06/28/16 [History Confirmed 06/28/16] Prazosin [Minipress] 3 mg PO HS 06/28/16 [History Confirmed 06/28/16] Sildenafil Citrate [Viagra] 100 mg PO AD PRN 06/28/16 [History Confirmed ] Thiamine (B-1) [Vitamin B-1] 100 mg PO DAILY 06/28/16 [History Confirmed ] Trazodone HCl 150 mg PO HS 06/28/16 [History Confirmed 06/28/16] Triamterene/HCTZ 37.5/25mg [Dyazide] 1 each PO DAILY 06/28/16 [History Confirmed 06/28/16] Active Medications Acetaminophen (Tylenol) 650 mg PO Q6HR PRN PRN Reason: Mild Pain (1-3) Stop: 12/29/16 00:23 Folic Acid (Folic Acid) 1 mg PO DAILY [facility] Stop: 12/29/16 09:01 Last Admin: 07/02/16 08:08 Dose: 1 mg Heparin Sodium (Porcine) (Heparin) 5,000 unit SQ Q12HR [facility] Stop: 12/29/16 06:01 Last Admin: 07/02/16 05:00 Dose: Not Given Sodium Chloride (0.9 % Sodium Chloride) 250 mls @ 937.5 mls/hr IVC .Q16M PRN PRN Reason: Hypotension Stop: 12/31/16 07:41 Last Admin: 07/02/16 11:31 Dose: 250 mls/hr Magnesium Sulfate 2 gm/ (Dextrose) 104 mls @ 50 mls/hr IVPB Q6H PRN PRN Reason: Hypomagnesemia Stop: 12/31/16 14:08 Last Infusion: 07/02/16 11:09 Dose: 0 mls/hr Potassium Chloride (Potassium Chloride 10 Meq/100ml) 10 meq in 100 mls @ 100 mls/hr IVPB Q1H PRN PRN Reason: Potassium less than 4 Stop: 12/31/16 14:08 Last Infusion: 07/02/16 10:48 Dose: Infused Potassium Chloride (Potassium Chloride 20 Meq/100 Ml) 40 meq in 200 mls @ 100 mls/hr IVPB Q1H PRN PRN Reason: Potassium less than 4 Stop: 01/01/17 10:52 Last Admin: 07/02/16 11:31 Dose: 100 mls/hr Sodium Chloride (0.9 % Sodium Chloride) 1,000 mls @ 75 mls/hr IVC .[id number] [facility] Stop: 01/01/17 11:46 Ibuprofen (Motrin) 600 mg PO Q8H PRN PRN Reason: TOOTACHE PAIN Stop: 12/31/16 14:07 Last Admin: 07/02/16 00:02 Dose: 600 mg Lorazepam (Ativan) 1 mg IVP Q1H PRN PRN Reason: Alcohol Withdrawal Stop: 12/29/16 00:25 Last Admin: 06/29/16 19:56 Dose: 1 mg Lorazepam (Ativan) 2 mg IVP Q4HR PRN PRN Reason: CIWA Score of 10-21 Stop: 12/29/16 00:25 Last Admin: 06/29/16 00:58 Dose: 2 mg Lorazepam (Ativan) 4 mg IVP Q4HR PRN PRN Reason: CIWA Score of 22-45 Stop: 12/29/16 00:25 Magnesium Oxide (Mag-Ox) 400 mg PO BID [facility] PRN Reason: Protocol Stop: 12/29/16 00:31 Last Admin: 07/02/16 08:08 Dose: 400 mg Naloxone HCl (Narcan) 0.4 mg IVP Q2MIN PRN PRN Reason: Opioid Reversal Stop: 12/29/16 00:23 Nicotine (Nicoderm) 21 mg TD DAILY [facility] PRN Reason: Protocol Stop: 12/29/16 09:01 Last Admin: 07/02/16 08:09 Dose: 21 mg Ondansetron HCl (Zofran) 4 mg IVP Q6HR PRN; Protocol PRN Reason: Nausea And Vomiting Stop: 12/29/16 00:39 Last Admin: 06/29/16 19:38 Dose: 4 mg Potassium Chloride (Potassium Chloride) 40 meq PO BIDWM [facility] Stop: 12/31/16 17:01 Last Admin: 07/02/16 08:08 Dose: 40 meq Sodium Chloride (Sodium Chloride) 1 gm PO TID [facility] Stop: 12/31/16 16:01 Last Admin: 07/02/16 08:08 Dose: 1 gm Thiamine HCl (Vitamin B-1) 100 mg PO DAILY [facility] Stop: 12/29/16 09:01 Last Admin: 07/02/16 08:08 Dose: 100 mg Trazodone HCl (Trazodone) 150 mg PO HS [facility] Stop: 12/30/16 21:01 Last Admin: 07/01/16 19:37 Dose: 150 mg Vitamin B Complex/Vit C/Vit E (Stresstab) 1 each PO DAILY [facility] Stop: 12/29/16 09:01 Last Admin: 07/02/16 08:08 Dose: 1 each Transfer Discharge Sum: Data Procedures and tests throughout hospitalization: Pending Orders 06/29/16 00:22 Admit as Inpatient Routine Glucose, blood poc measurement [RC] ACHS Intermittent pneumatic jakub [RC] .ONCE Vital Signs Assessment [RC] Q4H Acetaminophen [Tylenol] 650 mg PO Q6HR PRN Naloxone [Narcan] 0.4 mg IVP Q2MIN PRN Resuscitation Status: Active [RES] Routine 06/29/16 00:23 Cardiac Monitoring Med/Surg [RC] .CONT Continuous pulse oximetry [RC] CONT Measure intake and output [RC] QSHIFT Measure weight [RC] 0400 Oxygen via nasal cannula Nasal Cannula 2 lpm Consult to Occupational Therapy [CONS] Routine Consult to Tool Checker [CONS] Routine 06/29/16 00:24 Aspiration precautions [RC] .CONTINUOUS Assess CIWA scale [RC] Q12H Communication order [RC] Elevate head of bed [RC] .CONTINUOUS RT has an order or consult [RC] NOW Consult to Physical Therapy [CONS] Routine LORazepam [Ativan] 1 mg IVP Q1H PRN LORazepam [Ativan] 2 mg IVP Q4HR PRN LORazepam [Ativan] 4 mg IVP Q4HR PRN 06/29/16 00:30 Magnesium Oxide [Mag-Ox] 400 mg PO BID Up with Assist Daily 06/29/16 00:38 Ondansetron [Zofran] 4 mg IVP Q6HR PRN 06/29/16 06:00 Heparin 5,000 unit SQ Q12HR 06/29/16 07:00 Consult to Nephrology [CONS] Routine 06/29/16 09:00 Folic Acid 1 mg PO DAILY Nicotine Patch [Nicoderm] 21 mg TD DAILY Thiamine (B-1) [Vitamin B-1] 100 mg PO DAILY Vitamin B Complex/Vit C/Vit E [Stresstab] 1 each PO DAILY 06/29/16 Dinner Dietary Supplement Regular Diet 06/30/16 21:00 TraZODone 150 mg PO HS 07/01/16 07:40 0.9 % Sodium Chloride 250 ml IVC 937.5 mls/hr 07/01/16 14:06 Ibuprofen [Motrin] 600 mg PO Q8H PRN 07/01/16 14:07 Electrolyte Protocol Orders [RC] AD Magnesium Sulfate 2 gm D5% in Water [Dextrose 5%] 100 ml IVPB Q6H Potassium Chloride [Potassium Chloride 10 mEq/100mL] 10 meq in 100 ml IVPB Q1H 07/01/16 16:00 Sodium Chloride 1 gm PO TID 07/01/16 17:00 Potassium Chloride Elixir [Potassium Chloride] 40 meq PO BIDWM 07/02/16 10:51 Potassium Chloride [Potassium Chloride 20 mEq/100 mL] 40 meq in 200 ml IVPB Q1H 07/02/16 11:45 0.9 % Sodium Chloride 1,000 ml IVC 75 mls/hr 07/02/16 12:30 Magnesium Timed 07/02/16 14:15 Basic Metabolic Panel DAILY 07/03/16 14:15 Basic Metabolic Panel DAILY Transfer Discharge Sum: Prov Date of admission: 06/28/16 19:20 Primary care physician: PCP [place] Consults: 06/29/16 00:23 Consult to Occupational Therapy [CONS] Routine Comment: Evaluate, develop and implement POC Consult to Tool Checker [CONS] Routine Reason for SW Consult: alcohol abuse 06/29/16 00:24 Consult to Physical Therapy [CONS] Routine Comment: Evaluate, develop and implement POC 06/29/16 07:00 Consult to Nephrology [CONS] Routine Consulting Provider: Kidney Cordelia/HERLINDA/ANDRIA/BETTINA Reason for Consult: sever hypokalemia, hyponatremia, alcohol abuse Call Completed: No Attending physician on discharge: Pura Middleton Discharging clinician: Pura Middleton Anticipated date of transfer: 07/02/16 Receiving physician/facility: [facility] Transfer Discharge Sum: A/P - Plan Cognitive capacity at transfer: AAO x 3 Functional capacity at transfer: independent ambulation Overall status at transfer: patient is back to baseline Disposition: Transfer Other Transfer Discharge Sum: Hosp Hospital course: Mr. Abreu is a 55 year old male with history of chronic alcohol abuse with electrolyte abnormalities who was admitted for management of abnormal labs. Patient remained asymptomatic throughout his hospitalization. He was also noted to be hypotensive but asymptomatic. He has been ambulating well around the room and is in agreement to go to the [place] detox program. He has been accepted at the [facility] until his electrolytes are all stabilized after which he will be transferred to the detox program. He is stable and will be transferred to the [facility] today. - Time Spent with Patient Total time spent providing and/or coordinating transfer services: Greater than 30 minutes Transfer Discharge Sum: Exam - Constitutional Vitals: Vital Signs Temp Pulse Resp BP Pulse Ox 07/02/16 11:41 98.1 F 86 18 95/57 98 07/02/16 07:06 97.8 F 77 18 76/53 99 07/02/16 04:03 97.6 F 74 16 87/65 07/02/16 00:22 98.8 F 76 16 80/54 99 07/01/16 19:47 98.2 F 82 16 91/64 97 07/01/16 18:50 98.7 F 90 17 83/69 96 07/01/16 16:36 98.4 F 87 18 81/66 97 Intake and Output 07/01/16 07/02/16 07/02/16 23:59 07:59 15:59 Intake Total 944 / 944 300 / 300 680 / 680 Output Total 1200 / 1200 Balance 944 / 944 -900 / -900 680 / 680 Intake: IV Fluids 104 / 104 300 / 300 200 / 200 Magnesium Sulfate 2 GM In 104 / 104 100 / 100 Dextrose 5% 100 ML @ 50 mls/hr IVPB Q6H PRN Rx#: [id number] Potassium Chloride 10 mEq 300 / 300 100 / 100 /100mL 10 meq In 100 ml @ 100 mls/hr IVPB Q1H PRN Rx#:[id number] Oral 840 / 840 480 / 480 Output: Urine 1200 / 1200 Other: Meal Dinner Breakfast Percent of Meal Consumed 60% 100% Weight 51.8 kg Blood Glucose* 126 104 129 Patient Weight 07/02/16 23:59 Weight 51.8 kg - Head Head exam: Present: atraumatic, normocephalic - Eye Eye exam: Present: normal appearance, conjuntiva pink, sclera anicteric - Respiratory Respiratory exam: Present: CTAB. Absent: respiratory distress - Cardiovascular Cardiovascular exam: Present: RRR, +S1, +S2. Absent: diastolic murmur, systolic murmur - GI/Abdominal GI/Abdominal exam: Present: normal bowel sounds, soft. Absent: distended, rebound, tenderness - Extremities Exam Extremities exam: Absent: calf tenderness, pedal edema, tenderness - Neurological Exam Neurological exam: Present: alert, oriented X3 - Psychiatric Psychiatric exam: Present: normal affect, normal mood. Absent: homicidal ideation, suicidal ideation
--- NOTE | 2016-07-02 14:14 | Nephrology Progress Note ---
Date of Encounter: 07/02/16 Time of Encounter: 11:15 - Assessment and Plan (1) Hyponatremia Current Visit: Yes Status: Chronic Sodium remains a challenge at 119. Repeat urine osmolality still appropriate for his condition and given his hypotension (though pt reports a history of chronic hypotesion), will resume NS at 75cc/hr and recheck sodium within 6hrs if still her Continue salt tabs tid Continue salt packets with meals as well Limit fluid intake to 40-64oz a day (2) Hypokalemia Current Visit: Yes Status: Acute Potassium remains a challenge as well at 3.1, agree with repletion per primary team of 40meq in addition to standing 40meq bid ordered increased yesterday Continue magnesium supplements as well (3) Alcohol dependence Current Visit: Yes Status: Chronic Withdrawal protocol per primary team Continue MVI, thiamine and folate Continue high protein ensure Qualifiers: Substance use status: unspecified alcohol-induced disorder Qualified Code(s ): F10.29 - Alcohol dependence with unspecified alcohol-induced disorder (4) Hypomagnesemia Current Visit: Yes Status: Resolved Subjective Principal diagnosis: hyponatremia, hypokalemia Interval history: Pt seen and examined with no new complaints. He reports great appetite and has been eating well. Discussed with hospitalist sodium still low at 119 but [facility] Objective - Vital Signs Vital signs: Vital Signs Temp Pulse Resp BP Pulse Ox 07/02/16 11:41 98.1 F 86 18 95/57 98 07/02/16 07:06 97.8 F 77 18 76/53 99 07/02/16 04:03 97.6 F 74 16 87/65 07/02/16 00:22 98.8 F 76 16 80/54 99 07/01/16 19:47 98.2 F 82 16 91/64 97 07/01/16 18:50 98.7 F 90 17 83/69 96 07/01/16 16:36 98.4 F 87 18 81/66 97 Intake and Output 07/01/16 07/02/16 07/02/16 23:59 07:59 15:59 Intake Total 944 / 944 300 / 300 1570 / 1570 Output Total 1200 / 1200 300 / 300 Balance 944 / 944 -900 / -900 1270 / 1270 Intake: IV Fluids 104 / 104 300 / 300 850 / 850 0.9 % Sodium Chloride 250 250 / 250 ML @ 937.5 mls/hr IVC . Q16M PRN Rx#:[id number] Magnesium Sulfate 2 GM In 104 / 104 100 / 100 Dextrose 5% 100 ML @ 50 mls/hr IVPB Q6H PRN Rx#: [id number] Potassium Chloride 10 mEq 300 / 300 100 / 100 /100mL 10 meq In 100 ml @ 100 mls/hr IVPB Q1H PRN Rx#:[id number] Potassium Chloride 20 mEq 400 / 400 /100 mL 40 meq In 200 ml @ 100 mls/hr IVPB Q1H PRN Rx#:[id number] Oral 840 / 840 720 / 720 Output: Urine 1200 / 1200 300 / 300 Other: Meal Dinner Lunch Percent of Meal Consumed 60% 100% Weight 51.8 kg Blood Glucose* 126 104 129 Patient Weight 07/02/16 23:59 Weight 51.8 kg - General Appearance Exam: Thin, NAD EENT: Present: ATNC, mucous membranes moist Neck: Present: no JVD, supple Respiratory: Present: clear Cardiology: Present: no edema, normal S1, normal S2 Gastrointestinal: Present: no tenderness, no guarding Integumentary: Present: warm and dry Neurologic: Present: no focal deficit Musculoskeletal: Present: no deformities Psychiatric: Present: mood/affect appropriate - Lab 07/02/16 04:00 07/02/16 09:45 Most recent lab results Calcium 8.0 mg/dL (8.6-10.8) L 07/02/16 04:00 Phosphorus 2.3 mg/dL (2.3-4.7) 07/02/16 04:00 Magnesium 2.5 mg/dL (1.6-2.6) 07/02/16 09:45 Urine Creatinine 112 mg/dL 07/01/16 03:45 Urine Sodium 25.0 mEq/L 07/02/16 04:05 Consult Discharge Plan - Plan [facility]errals: [facility] Care Provider[facility] - (PT IS GOING BACK TO REHAB, NO PCP APPOINTMENT NEEDED)
[2016-07-02 14:48] LABS: BUN/Creatinine Ratio 9 (6-26); Blood Urea Nitrogen 7 mg/dL (8-26); Calcium 7.8 mg/dL (8.6-10.8); Carbon Dioxide 35 mEq/L (19-29); Chloride 86 mEq/L (98-109); Glucose 144 mg/dL (70-99); Osmolality,Calculated 261 (280-300); Potassium 3.6 mEq/L (3.5-4.5); Sodium 125 mEq/L (136-145); eGFR For African Americans > 60 (> 60); eGFR For Non-African Americans > 60 (> 60)
[2016-07-02 16:37] VITALS: BP 86/65
== END 2016-07-02 17:40 | disposition other institution (70) | DRG 641 ==
LOC: EMEROO 16:35 → 2NNU 19:20 → SUATTDRO 19:20 → 2NNU 23:37
PROVIDERS: ADMIT Nurse Practitioner Family; ATTEND Internal Medicine